=== PATIENT | male | born 1970 | race African-American/Black ===

== ENCOUNTER 2017-02-03 10:34 | Emergency (ER) | payer MEDICARE, MEDICAID ==
[~2017-02-03] VITALS: Ht 172.7 cm; Wt 97.5 kg
[~2017-02-03 10:34] MED LIST: AMOXICILLIN500 MG ORAL; ASPIRIN EC81 MG ORAL; CYCLOBENZAPRINE10 MG ORAL; EPZICOM1 TAB ORAL; ETODOLAC500 MG PO; IBUPROFEN600 MG ORAL; IBUPROFEN800 M1 PO; IBUPROFEN800 MG ORAL; SUDAFED60 MG ORAL; SUSTIVA600 MG ORAL
[2017-02-03] MEDS ORDERED: DIAZEPAM5 MG (10:50)
[2017-02-03] MEDS ORDERED: TRIUMEQ (10:50)
[2017-02-03] MEDS ORDERED: AMOXICILLIN500 MG ORAL (11:04)
[2017-02-03 11:22] VITALS: BP 114/75
--- NOTE | 2017-02-04 07:20 | Emergency Room Report ---
History of Present Illness General Chief Complaint: Earache Source: Patient Present Illness HPI Patient is a 46-year-old male who presented for a left ear pain. The patient gradual onset of symptoms. He reported having approximately 3 days of decreased hearing as well as pain to his left ear. He denies recent trauma. He had not been any fever. Had similar symptoms in the past. Patient prior history of HIV. He reports having cell count approximately 900. He denies any ear discharge or sore throat. He reports using Q-tips Allergies: Coded Allergies: SULFA (SULFONAMIDE ANTIBIOTICS) (Verified Allergy, Severe, rash, 08/24/12) Patient History Past Medical History: see triage record Reviewed Nursing Documentation: PMH: Agreed, PSxH: Agreed Nursing Documentation-PMH Past Medical History: No History, Except For Hx Cardiac Problems: No - HIV+ Review of Systems All Other Systems: negative except mentioned in HPI Physical Exam Vital Signs Date Time Temp Pulse Resp B/P (MAP) Pulse Ox O2 Delivery O2 Flow Rate FiO2 02/03/17 10:47 98.1 84 16 126/73 98 Room Air General Appearance: well appearing, no apparent distress, alert, GCS 15 Head: normocephalic, atraumatic ENT: hearing grossly normal, normal voice, other - tms bulging, fluid, slight erythema Neck: full range of motion, supple Respiratory: no respiratory distress, speaking full sentences Musculoskeletal: no calf tenderness Neurologic: normal gait Psychiatric: mood/affect normal Skin: no rash Medical Decision Making Diagnostic Impression: Primary Impression: Otitis media ER Course Patient presented for ear pain. Differential diagnosis included was not limited to otitis media, malignant otitis externa, foreign body, cellulitis, mastoiditis, carotid dissection, myocardial infarction among others. The patient appears to have otitis media. The patient given prescription for oral antibiotics. The patient was advised followup with his infectious disease Dr. as well as ENT. Patient is advised to return if any worsening condition or if any changes in status that are concerning. Last Vital Signs Date Time Temp Pulse Resp B/P (MAP) Pulse Ox O2 Delivery O2 Flow Rate FiO2 02/03/17 11:22 98.1 71 18 114/75 99 Room Air Status: improved Disposition: HOME, SELF-CARE Condition: Stable Scripts Amoxicillin* (AMOXIL*) 500 Mg Capsule 500 MG ORAL EVERY 8 HOURS, #30 CAP Prov: Subhash Portillo 02/03/17 Referrals: NON PHYSICIAN (PCP) Patient Instructions: Otitis Media, Adult Subhash Portillo Feb 04, 2017 07:20
== END 2017-02-03 11:22 | disposition home or self-care (01) ==
LOC: EMR 11:14
DX: H66.92 Otitis media, unspecified, left ear (principal); Z88.2 Allergy status to sulfonamides
CPT/HCPCS: 99283

== ENCOUNTER 2017-02-06 14:26 | Emergency (ER) | payer MEDICARE, MEDICAID ==
[~2017-02-06] VITALS: Ht 175.3 cm; Wt 97.1 kg
[~2017-02-06 14:26] MED LIST changes: +DIAZEPAM5 MG; +TRIUMEQ
[2017-02-06] MEDS ORDERED: VALIUM5 MG ORAL (14:39)
[2017-02-06 14:41] VITALS: BP 158/84
[2017-02-06] MEDS ORDERED: IBUPROFEN600 MG ORAL (15:05)
[2017-02-06] MEDS ORDERED: CORTISPORIN EAR10 ML LEFT EAR (15:05)
[2017-02-06 15:09] VITALS: BP 158/84
--- NOTE | 2017-02-06 15:47 | Emergency Room Report ---
History of Present Illness General Chief Complaint: Earache Source: Patient Present Illness HPI The patient is a 46-year-old male presenting for left ear pain. He was seen in this emergency department 4 days prior for the same complaint and given prescription for amoxicillin. He states that pain has continued. It is an 8/ 10 throbbing sensation and does not radiate. Worse with touch. He denies any changes in hearing. He denies any fever or chills Allergies: Coded Allergies: SULFA (SULFONAMIDE ANTIBIOTICS) (Verified Allergy, Severe, rash, 08/24/12) Patient History Past Medical History: see triage record Pertinent Family History: none Reviewed Nursing Documentation: PMH: Agreed, PSxH: Agreed Nursing Documentation-PMH Hx Cardiac Problems: No - HIV+ Review of Systems All Other Systems: negative except mentioned in HPI Physical Exam Vital Signs Date Time Temp Pulse Resp B/P (MAP) Pulse Ox O2 Delivery O2 Flow Rate FiO2 02/06/17 14:36 97.9 80 18 158/84 98 Room Air Sp02 EP Interpretation: reviewed, normal General Appearance: no apparent distress, alert, GCS 15, non-toxic Head: normocephalic, atraumatic Eyes: bilateral eye normal inspection, bilateral eye PERRL ENT: hearing grossly normal, normal pharynx, no angioedema, normal voice, uvula midline, other - L EAC erythema and edema with white DC Respiratory: chest non-tender, lungs clear, normal breath sounds, speaking full sentences Cardiovascular #1: regular rate, rhythm, no edema Musculoskeletal: back normal, gait/station normal, normal range of motion, non- tender Neurologic: alert, oriented x3, responsive, motor strength/tone normal, sensory intact, speech normal Psychiatric: judgement/insight normal, memory normal, mood/affect normal, no suicidal/homicidal ideation Skin: normal color, no rash, warm/dry, well hydrated Medical Decision Making PA Attestation Dr. Berry is my supervising physician. Patient management was discussed with my supervising physician Diagnostic Impression: Primary Impression: Otitis externa, acute Qualified Codes: H60.332 - Swimmer's ear, left ear ER Course The patient is a 46-year-old male presenting for left ear pain Differential diagnosis include but not limited to otitis externa, otitis media, mastoiditis, sinusitis, pharyngitis Physical exam: Vitals within normal limits. No apparent distress. HEENT: Left ear external auditory canal is erythematous and edematous. White discharge is noted. Tympanic membrane is intact. No bulging. There is no cervical lymphadenopathy. Otherwise exam is unremarkable The patient will be discharged home with a prescription for Cortisporin Last Vital Signs Date Time Temp Pulse Resp B/P (MAP) Pulse Ox O2 Delivery O2 Flow Rate FiO2 02/06/17 15:09 97.9 84 18 158/84 98 Room Air Status: improved Disposition: HOME, SELF-CARE Condition: Improved Scripts Ibuprofen* (MOTRIN*) 600 Mg Tablet 600 MG ORAL Q8H Y for For Pain, #30 TAB 0 Refills Prov: GENO DAWSON 02/06/17 Neomycin/Polymyxin B Sulf/Hc* (CORTISPORIN EAR SOLUTION*) 10 Ml Solution 4 DROP LEFT EAR QID, #10 ML 0 Refills Prov: GENO DAWSON 02/06/17 Referrals: NON PHYSICIAN (PCP) Patient Instructions: Otitis Externa GENO DAWSON Feb 06, 2017 15:47
== END 2017-02-06 15:23 | disposition home or self-care (01) ==
LOC: EMR 15:03
DX: H60.332 Swimmer's ear, left ear (principal); Z88.2 Allergy status to sulfonamides
CPT/HCPCS: 99283

== ENCOUNTER 2018-11-23 23:23 | Emergency (ER) | payer MEDICAID, MEDICARE ==
[~2018-11-23] VITALS: Ht 172.7 cm; Wt 90.7 kg
[~2018-11-23 23:23] MED LIST changes: +CORTISPORIN EAR10 ML LEFT EAR; +VALIUM5 MG ORAL
[2018-11-23 23:35] VITALS: BP 188/100
--- NOTE | 2018-11-23 23:35 | NUR ---
ED Nurse Note: Walk-in patient presents with complaints of low back pain and spasm x1 day., acute onset. ERMD at bedside, currently.
[2018-11-23] MEDS ORDERED: Ketorolac 60mg Inj IM ONE (23:45)
[2018-11-23] MEDS ORDERED: Methocarbamol 500mg tab ORAL ONE (23:45)
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
[2018-11-24 00:06] LABS: APPEARANCE,URINE CLEAR; BILIRUBIN, URINE NEGATIVE (NEGATIVE); COLOR,URINE PALE YELLOW; GLUCOSE, URINE (UA) NEGATIVE (NEGATIVE); KETONES,URINE NEGATIVE (NEGATIVE); LEUKOCYTE ESTERASE ,URINE 1+ (NEGATIVE); NITRITE,URINE NEGATIVE (NEGATIVE); PH,URINE 5 (4.5-8.0); PROTEIN,URINE 2+ (NEGATIVE); UROBILINOGEN,URINE NORMAL MG/DL (0.0-1.0)
--- NOTE | 2018-11-24 00:08 | NUR ---
ED Nurse Note: Patient went down with radiology for CT of the L-spine.
--- NOTE | 2018-11-24 00:23 | NUR ---
ED Nurse Note: Patient returned from CT.
--- NOTE | 2018-11-24 00:37 | Diagnostic Imaging Report ---
EXAM: CT Lumbar Spine Without Intravenous Contrast CLINICAL HISTORY: PAIN TECHNIQUE: Axial computed tomography images of the lumbar spine without intravenous contrast. CTDI is 17.42 mGy and DLP is 659 mGy-cm. One or more of the following dose reduction techniques were used: automated exposure control, adjustment of the mA and/or kV according to patient size, use of iterative reconstruction technique. COMPARISON: No relevant prior studies available. FINDINGS: Vertebrae: No acute or healing fracture or other malalignment. Loss of lordosis is most likely due to muscle spasm and/or positioning Discs/spinal canal/neural foramina: No acute findings. No spinal canal stenosis. Soft tissues: Unremarkable. IMPRESSION: No acute or healing fracture or spondylolisthesis.
[2018-11-24] MEDS ORDERED: PERCOCET 5-3251 EACH ORAL (00:55)
[2018-11-24] MEDS ORDERED: METHOCARBAMOL500 MG ORAL (00:55)
[2018-11-24 01:02] VITALS: BP 188/100
--- NOTE | 2018-11-24 01:02 | NUR ---
ER DISCHARGE NOTE: Patient is cleared to be discharged per ERMD, pt is aox4, on room air, with stable vital signs. pt was given dc and prescription instructions, pt was able to verbalize understanding, pt id band removed without complications. pt is able to ambulate with steady gait. pt took all belongings.
== END 2018-11-24 01:07 | disposition home or self-care (01) ==
LOC: EMR 23:42
DX: S33.5XXA Sprain of ligaments of lumbar spine, initial encounter (principal); M62.838 Other muscle spasm; R53.1 Weakness; Z88.2 Allergy status to sulfonamides; F41.9 Anxiety disorder, unspecified; B20 Human immunodeficiency virus [HIV] disease; X58.XXXA Exposure to other specified factors, initial encounter; Y92.9 Unspecified place or not applicable
CPT/HCPCS: 72131; 81003; 96372; 99284